=== PATIENT | female | born 1975 | race Caucasian/White ===

== ENCOUNTER 2016-11-04 07:48 | Outpatient (CLI) | payer OTHER ==
[2016-08-25 09:23] VITALS: BP 113/88
[2016-11-04 08:12] LABS: BASOPHILS % 0.3 (0.0-1.5); EOSINOPHILS % 1.9 % (0.0-6.8); LYMPHOCYTES # 1.5 # k/uL (0.6-4.0); MEAN CORPUSCULAR HEMOGLOBIN 30.5 pg (28.0-34.0); MONOCYTES # 0.3 # k/uL (0.0-0.9); MONOCYTES % 5.7 % (0.0-11.0); NEUTROPHILS # 3.5 # k/uL (1.4-7.7)
[2016-11-04 08:53] LABS: eGFR (African) > 60; eGFR (Non-African) > 60
== END 2016-11-04 07:50 ==
LOC: LAB 07:48
PROVIDERS: ATTEND Obstetrics & Gynecology
DX: Z13.9 Encounter for screening, unspecified (principal)
CPT/HCPCS: 36415; 80053; 80061; 84443; 85025

== ENCOUNTER 2019-07-27 09:30 | Outpatient (CLI) | payer OTHER ==
[2016-08-25 09:23] VITALS: BP 113/88
[2019-08-04 10:28] LABS: eGFR (Non-African) > 60
[2019-08-04 10:29] LABS: BASOPHILS % 0.4 % (0.0-1.5); HDL 57 mg/dL (>40); NEUTROPHILS # 3.3 # k/uL (1.4-7.7)
== END 2019-07-27 09:35 | disposition home or self-care (01) ==
LOC: LAB 09:30
PROVIDERS: ATTEND Family Medicine
DX: Z13.220 Encounter for screening for lipoid disorders (principal); Z13.29 Encounter for screening for other suspected endocrine disorder; Z13.0 Encounter for screening for diseases of the blood and blood-forming organs and certain disorders involving the immune mechanism
CPT/HCPCS: 36415; 80053; 80061; 84443; 85025